=== PATIENT | female | born 1980 | race Hispanic/Latino ===

== ENCOUNTER 2022-03-25 19:45 | Emergency (ER) | payer BC ==
[~2022-03-25] VITALS: Ht 157.5 cm; Wt 83.5 kg
[~2022-03-25 19:45] MED LIST: APIX2.5T PO; DEXA6TAB7 PO; PANT40TA54 PO
[2022-03-25] MEDS ORDERED: BENZONATATE 100 MG CAPSULE PO STA (20:02)
[2022-03-25] MEDS ORDERED: OSELTAMIVIR PHOSPHATE 75 MG CAP PO STA (20:02)
[2022-03-25] MEDS ORDERED: SOLU-MEDROL 125MG VIAL IVP STA (20:14)
[2022-03-25] MEDS ORDERED: ACETAMINOPHEN 500 MG TABLET ONE (20:20)
[2022-03-25] MEDS ORDERED: AZITHROMYCIN 500MG+NS 250ML 250 ML ONE (20:20)
[2022-03-25 20:22] LABS: BASOPHILS % (AUTO) 0.7 % (0.0-5.0); EOSINOPHILS % (AUTO) 1.6 % (0.0-8.0); HEMATOCRIT 37.4 % (36-48); LYMPHOCYTES % (AUTO) 16.9 % (21.0-51.0); MEAN CORPUSCULAR HEMOGLOBIN 27.1 pg (27.0-33.0); MEAN CORPUSCULAR HGB CONC 32.4 g/dL (32.0-36.0); MEAN CORPUSCULAR VOLUME 83.7 fL (79-99); MONOCYTES % (AUTO) 5.3 % (3.0-13.0); NEUTROPHILS % (AUTO) 74.4 % (40.0-77.0); PLATELET COUNT (AUTO) 381 K/uL (130-400); RED BLOOD CELL COUNT(AUTO) 4.47 MIL/uL (4.00-5.50); RED CELL DISTRIBUTION WIDTH 13.9 % (11.0-15.5); WHITE BLOOD COUNT (AUTO) 16.9 K/uL (4.8-10.8)
[2022-03-25 20:30] LABS: CREATININE 0.8 mg/dL (0.5-1.5); POTASSIUM 3.4 mmol/L (3.5-5.1)
[2022-03-25] MEDS ORDERED: ONDANSETRON 4MG INJ ONE (20:30)
[2022-03-25] MEDS ORDERED: AZITHROMYCIN 500MG+NS 250ML IVPB SCH (20:30)
[2022-03-25 20:35] LABS: ALBUMIN 3.8 g/dL (3.5-5.0); TOTAL PROTEIN, SERUM 7.7 g/dL (6.0-8.3)
[2022-03-25] MEDS ORDERED: ACETAMINOPHEN 500 MG TABLET PO ONE (21:00)
[2022-03-25] MEDS ORDERED: ONDANSETRON 4MG INJ IVP ONE (21:00)
[2022-03-25] MEDS ORDERED: PRED20TA3 PO (22:41)
[2022-03-25] MEDS ORDERED: AZIT250T9 PO (22:41)
[2022-03-25] MEDS ORDERED: BENZ200C53 PO (22:43)
[2022-03-25] MEDS ORDERED: AUD IH (22:43)
[2022-03-25 22:54] VITALS: BP 123/82
== END 2022-03-25 23:05 | disposition home or self-care (01) ==
LOC: EDH 19:45
DX: J10.1 Influenza due to other identified influenza virus with other respiratory manifestations (principal); J45.909 Unspecified asthma, uncomplicated; Z79.01 Long term (current) use of anticoagulants; Z79.52 Long term (current) use of systemic steroids; Z79.899 Other long term (current) drug therapy; Z90.710 Acquired absence of both cervix and uterus
CPT/HCPCS: 99284; 96365; 71045; 96375; 96366; 84484; 80053; 85025; 36415; 93005; J2930; J2405; J0456

== ENCOUNTER 2025-03-18 16:36 | Emergency (ER) | payer BC, OTHER ==
[~2025-03-18] VITALS: Ht 160 cm; Wt 68.0 kg
[~2025-03-18 16:36] MED LIST changes: +AUD IH; +AZIT250T9 PO; +BENZ200C53 PO; +PRED20TA3 PO
[2025-03-18 16:38] VITALS: TEMP 98.2
[2025-03-18 17:04] LABS: IMMATURE GRANULOCYTE ABSOLUTE 0.03 K/uL (0-1); NUCLEATED RED BLOOD CELLS 0.0 % (0.0-0.19); PLATELET COUNT (AUTO) 332 K/uL (130-400); RED BLOOD CELL COUNT(AUTO) 4.62 MIL/uL (4.00-5.50); RED CELL DISTRIBUTION WIDTH 12.9 % (11.0-15.5); WHITE BLOOD COUNT (AUTO) 10.4 K/uL (4.8-10.8)
[2025-03-18 17:20] LABS: CREATININE 0.8 mg/dL (0.5-1.0); GLOMERULAR FILTR. RATE CALC 92.0 mL/min (>90); GLUCOSE,RANDOM 85.0 mg/dL (70-105); SODIUM SERUM 138.0 mmol/L (136-145); UREA NITROGEN, BLOOD 14.0 mg/dL (7-18)
[2025-03-18 17:46] VITALS: BP 111/78; PULSE 82; RESP 17; O2SAT 96
[2025-03-18] MEDS: LIDOCAINE HCL 1% 20 ML VIAL INJ ONE (18:39)
--- NOTE | 2025-03-18 19:43 | ERN ---
ED Note History of Present Illness Stated Complaint: WOUND CHECK Chief Complaint: Cellulitis Time Seen by MD: 18:14 Time Seen by Midlevel: 18:14 Dictation: The patient is a 44-year-old female with a history of diabetes who presents to the emergency department with complaints of erythema to the left lower quadrant. Patient reports she thinks something bit her. Patient symptoms started on Tuesday. Reports she went to the urgent care where they diagnosed her with cellulitis and gave her Bactrim. Patient reported no improving after the medications so she went to an ER freestanding yesterday where they told her nausea take Bactrim anymore and take Keflex instead. Patient denies any fevers. Allergies: Coded Allergies: No Known Allergies (Unverified Allergy, Unknown, 08/31/20) Home Meds Active Scripts Benzonatate (Benzonatate) 200 Mg Capsule, 200 MG PO TID for 10 Days, #30 CAP Prov:ANA DOTSON MD 03/25/22 Albuterol Sulfate (Albuterol Sulfate) 2.5 Mg/0.5 Ml Vial.neb, 2.5 MG IH QID for 10 Days, #40 INH Prov:ANA DOTSON MD 03/25/22 Prednisone (Prednisone) 20 Mg Tablet, 3 TAB PO AD for 5 Days, #15 TAB 0 Refills TAKE 1 TAB BY MOUTH THREE TIMES PER DAY X3 DAYS, THEN TAKE 1 TAB BY MOUTH TWICE A DAY X2 DAYS, THEN TAKE 1 TAB BY MOUTH ONCE A DAY X1 DAY. Prov:ANA DOTSON MD 03/25/22 Azithromycin (Azithromycin) 250 Mg Tablet, 250 MG PO DAILY for 4 Days, #4 TAB Prov:ANA DOTSON MD 03/25/22 Pantoprazole Sodium (Pantoprazole Sodium) 40 Mg Tablet.dr, 40 MG PO DAILY for 30 Days, #30 TAB 0 Refills Prov:TED ROBLERO MD 09/04/20 Apixaban (Eliquis) 2.5 Mg Tablet, 2.5 MG PO BID for 14 Days, #28 TAB 0 Refills Prov:TED ROBLERO MD 09/04/20 Dexamethasone (Decadron) 6 Mg Tablet, 6 MG PO DAILY for 4 Days, #4 TAB 0 Refills Prov:TDE ROBLERO MD 09/04/20 Past Medical History Past Medical History: No Pertinent History, Asthma, Diabetes-Type II Surgical History: Hysterectomy Social History: Negative Review of System Dictation Constitutional: Negative for fever,chills, and weight loss Eyes: Negative for injury, pain,redness, and discharge ENT: Negative for injury,pain or swelling Cardiovascular: Negative for chest pain, palpitations, and edema Respiratory: Negative for shortness of breath, cough, and wheezing, Abdomen/GI: Negative for abdominal pain, nausea, vomiting, diarrhea, and constipation Back: Negative for injury and pain : Negative for injury, bleeding and discharge MS/Extremity: Negative for injury and deformity Skin: Positive for left lower abdomen erythema Neuro: Negative for headache, weakness, numbness, tingling, and seizure Psych: Negative for suicide ideation, homicidal ideation, and hallucinations Initial Vital Sign VS Vital Signs Date Time Temp Pulse Resp B/P (MAP) Pulse Ox O2 Delivery O2 Flow Rate FiO2 03/18/25 16:38 98.2 82 16 141/69 100 Room Air 0 03/18/25 17:46 21 Physical Exam Dictation Vital Signs reviewed General Appearance: Alert, oriented x 3, no acute distress, well developed, nourished. Head and Face: non-traumatic. Eyes: PERRL, pink conjunctivas, eyelid no trauma, anterior chamber with arcus se nilis. Ears: Pinnas intact and no signs of trauma or erythema ear canals clear and no discharge TM no erythema Nose: No discharge, no bleeding. Oropharynx: Mouth normal, tongue pink. pharynx clear,no erythema, tonsils no exudates, no abscesses noted, mucous membrane moist Neck: Supple, non-tender, no thyromegaly, no masses, no JVD, no bruits Breast:Deferred Chest:No tenderness, no crepitus, no paradoxical movement, no retractions Lungs:Clear, well-ventilated, symmetric, no rales, no wheezing, no rhonchi, no stridor, good breath sounds bilaterally Heart: Regular rate, regular rhythm, no murmur, no gallops Vascular: no peripheral edema, Abdomen: Soft, positive bowel sounds, nondistended, no guarding, nontender, no rebound, no masses no hepatomegaly, no splenomegaly, no Edmonds's sign, no hernias. Rectal: Deferred Genital: Deferred Neurological: Normal speech, motor function intact, sensory function intact Musculoskeletal: Neck nontender, full range of motion, back nontender, full range of motion, Extremities: nontender, full range of motion Skin: Color pink, dry, no turgor, no rash, no lacerations, no abrasions, no contusions. 5 cm in diameter erythema to left lower quadrant, 2 cm small abscess, no drainage Lymphatic: Deferred Results (Laboratory/Radiology) Laboratory/Radiology Laboratory Tests Test 03/18/25 16:50 White Blood Count 10.4 K/uL (4.8-10.8) Red Blood Count 4.62 MIL/uL (4.00-5.50) Hemoglobin 13.3 g/dL (12.0-16.0) Hematocrit 41.0 % (36-48) Mean Corpuscular Volume 88.7 fL (79-99) Mean Corpuscular Hemoglobin 28.8 pg (27.0-33.0) Mean Corpuscular Hemoglobin Concent 32.4 g/dL (32.0-36.0) Red Cell Distribution Width 12.9 % (11.0-15.5) Platelet Count 332 K/uL (130-400) Mean Platelet Volume 10.5 fL (7.5-10.5) Immature Granulocyte % (Auto) 0.3 % (0-1) Neutrophils (%) (Auto) 76.3 % (40.0-77.0) Lymphocytes (%) (Auto) 16.5 % (21.0-51.0) L Monocytes (%) (Auto) 5.3 % (3.0-13.0) Eosinophils (%) (Auto) 1.1 % (0.0-8.0) Basophils (%) (Auto) 0.5 % (0.0-5.0) Neutrophils # (Auto) 8.0 K/uL (1.8-7.7) H Lymphocytes # (Auto) 1.7 K/uL (1.0-4.8) Monocytes # (Auto) 0.6 K/uL (0.1-1.0) Eosinophils # (Auto) 0.11 K/uL (0.00-0.70) Basophils # (Auto) 0.05 K/uL (0.00-0.20) Absolute Immature Granulocyte (auto 0.03 K/uL (0-1) Nucleated Red Blood Cells 0.0 % (0.0-0.19) Sodium Level 138 mmol/L (136-145) Potassium Level 3.5 mmol/L (3.5-5.1) Chloride Level 101 mmol/L (101-111) Carbon Dioxide Level 30 mmol/L (21-32) Blood Urea Nitrogen 14 mg/dL (7-18) Creatinine 0.8 mg/dL (0.5-1.0) Glomerular Filtration Rate Calc 92 mL/min (>90) Random Glucose 85 mg/dL (70-105) Lactic Acid Level 1.6 mmol/L (0.8-2.5) Total Calcium 9.1 mg/dL (8.5-10.1) Labs Reviewed?: Yes ED Course ED Course Orders Procedure Category Date Status Time Cbc With Differential LAB 03/18/25 Complete 16:45 Basic Metabolic Panel LAB 03/18/25 Complete 16:45 Lactic Acid LAB 03/18/25 Complete 16:45 Blood Cult RASHMI 03/18/25 In Process 16:45 Lidocaine Hcl 1% 20ml PHA 03/18/25 Complete Vial (Lidocaine Hc 18:30 Ceftriaxone 1g Vial PHA 03/18/25 Complete (Rocephine 1g Inj) 18:30 Current Medications Medications (Trade) Dose Ordered Sig/Shyam Route PRN Reason Start Time Stop Time Status Last Admin Dose Admin Ceftriaxone Sodium (ROCEphine 1G INJ) 1 gm ONCE ONCE IM 03/18/25 18:30 03/18/25 18:31 DC 03/18/25 18:39 Lidocaine HCl (Lidocaine HCl 1% 20ml Vial) 10 ml ONCE ONCE INJ 03/18/25 18:30 03/18/25 18:31 DC 03/18/25 18:39 Vital Signs Date Time Temp Pulse Resp B/P (MAP) Pulse Ox O2 Delivery O2 Flow Rate FiO2 03/18/25 17:46 82 17 111/78 96 Room Air* 0 21 03/18/25 16:38 98.2 82 16 141/69 100 Room Air 0 Medical Decision Making MDM The patient is a 44-year-old female with a history of diabetes who presents to the emergency department with complaints of erythema to the left lower quadrant. Patient reports she thinks something bit her. Patient symptoms started on Tuesday. Reports she went to the urgent care where they diagnosed her with cellulitis and gave her Bactrim. Patient reported no improving after the medications so she went to an ER freestanding yesterday where they told her nausea take Bactrim anymore and take Keflex instead. Patient denies any fevers. CBC showed no leukocytosis, no anemia, chemistry showed no electrolyte imbalance, lactic acid of 1.6, normal blood glucose. Patient with erythema to the left lower quadrant erythema is about 5 cm in diameter. With a a small abscess about 1.5 cm in diameter. Patient reports that she had some drainage yesterday. Patient with a very small abscess. No need for drainage at this time. Patient has a taken antibiotics for two days and has changed from Bactrim to Keflex. I instructed to the patient that she needs more time with the antibiotics. She has only been on them for two days. Patient also received her tetanus vaccine yesterday. Patient instructed to take the Bactrim instead of the Keflex for better coverage. Reports she still has a at home. On physical exam patient is in no acute distress, nontoxic appearance. Stable vital signs. Patient will be discharged to follow up with PCP. Differential diagnosis: Cellulitis, abscess, sepsis Need for hospitalization: Patient does not meet criteria for hospitalization. There are no social concerns with this patient. DX & DISP Disposition: Discharge Departure Impression: Primary Impression: Cellulitis of abdominal wall Additional Impression: Infected insect bite Condition: Stable Additional Instructions: Please continue taking your Bactrim that you were prescribed at the urgent care. Apply warm compress to the affected area. Make sure you follow up with your primary doctor in 1-2 days. If any changes or concerns please return to ER. FOLLOW-UP WITH PRIMARY CARE PROVIDER IN 1 TO 2 DAYS. TAKE MEDICATIONS DIRECTED HERE IN THE EMERGENCY ROOM. OKAY TO CONTINUE HOME MEDICATIONS UNLESS OTHERWISE DISCUSSED DURING YOUR VISIT IN THE EMERGENCY ROOM TODAY. RETURN TO YOUR NEAREST EMERGENCY ROOM IF SYMPTOMS WORSEN OR IF THERE IS NO IMPROVEMENT. CALL 911 IF YOU NEED IMMEDIATE ASSISTANCE. TAKE TYLENOL OANM-EXN-BKDSRGH NEEDED AND IF NO CONTRAINDICATIONS ARE PRESENT. INCREASE ORAL HYDRATION. A WOUND CULTURE OR URINE CULTURE WAS ORDERED HERE IN THE EMERGENCY ROOM DEPARTMENT PLEASE FOLLOW-UP WITH PRIMARY CARE PROVIDER AND ADVISE THEM TO GET REPEAT PORTS FROM OUR FACILITY. IF YOU HAD ANY ADOLPH WRAP/SPLINTS THAT WERE APPLIED HERE, PLEASE DO NOT REMOVE THEM UNTIL YOU SEE YOUR PRIMARY CARE OR SPECIALTY. Referrals: JERICA WADDELL MD (PCP) Time of Disposition: 19:40 I have examined patient, & reviewed all documents, & agreed W/ the Diagnosis, and Plan TRA [facility]ATLIFF [facility] Mar 18, 2025 19:43
== END 2025-03-18 19:52 | disposition home or self-care (01) ==
LOC: EDH 16:36
DX: S30.861A Insect bite (nonvenomous) of abdominal wall, initial encounter (principal); L03.311 Cellulitis of abdominal wall; Z79.01 Long term (current) use of anticoagulants; Z79.52 Long term (current) use of systemic steroids; Z79.899 Other long term (current) drug therapy; Z90.710 Acquired absence of both cervix and uterus; W57.XXXA Bitten or stung by nonvenomous insect and other nonvenomous arthropods, initial encounter; Y93.89 Activity, other specified; Y92.89 Other specified places as the place of occurrence of the external cause; Y99.8 Other external cause status
CPT/HCPCS: 99283; 80048; 85025; 87040 ×2; 83605; 36415; 96372; J0696